=== PATIENT | male | born 1995 | race Caucasian/White ===

== ENCOUNTER 2016-08-10 01:03 | Emergency (ER) | payer SELFPAY ==
[~2016-08-10] VITALS: Ht 167.6 cm; Wt 70.0 kg
[2016-08-10] MEDS ORDERED: IBUPROFEN 600MG TABLET PO ONE (03:15)
[2016-08-10 03:37] VITALS: BP 127/78
== END 2016-08-10 03:40 | disposition home or self-care (01) ==
LOC: ER 01:03
DX: S62.611A Displaced fracture of proximal phalanx of left index finger, initial encounter for closed fracture (principal); F17.200 Nicotine dependence, unspecified, uncomplicated; X58.XXXA Exposure to other specified factors, initial encounter; Y93.89 Activity, other specified; Y92.89 Other specified places as the place of occurrence of the external cause; Y99.8 Other external cause status
CPT/HCPCS: 29130; 73130; 99284